=== PATIENT | male | born 1945 | race Caucasian/White ===

== ENCOUNTER 2017-02-04 20:37 | Emergency (ER) | payer MEDICARE, OTHER | END 2017-02-04 23:40 | disposition home or self-care (01) | LOC: ERS 20:37 | DX: J11.1 Influenza due to unidentified influenza virus with other respiratory manifestations (principal) | CPT/HCPCS: 87081; 87430; 99283 ==

== ENCOUNTER 2017-02-07 10:43 | Emergency (ER) | payer MEDICARE, OTHER ==
[2017-02-07 11:43] LABS: ALT (SGPT) 11 U/L (8-55); AST (SGOT) 27 U/L (5-34); Alkaline Phosphatase 131 U/L (40-150); Anion Gap 17 mmol/L (10-20); BUN (Urea Nitrogen) 16 mg/dL (8.4-25.7); Bilirubin, Total 0.8 mg/dL (0.2-1.2); Calc. Creatinine Clearance 0 mL/min (70-130); Carbon Dioxide 23 mmol/L (23-31); Chloride 94 mmol/L (98-107); Estimated GFR-MDRD Greater than 90; Globulin 3.3 g/dL (2.4-3.5); Lipase 41 U/L (8-78); Protein, Total 7.6 g/dL (5.8-8.1)
[2017-02-07 11:58] LABS: #Lymphocytes 1.4 thou/uL (1.20-3.40); #Monocytes 0.8 thou/uL (0.11-0.59); #Neutrophils 4.9 thou/uL (1.40-6.50); %Basophils 0.2 % (0.0-1.0); %Eosinophils 0.6 % (0.0-10.0); %Lymphocytes 19.6 % (21.0-51.0); %Monocytes 10.7 % (0.0-10.0); Hematocrit 49.3 % (42.0-52.0); Mean Platelet Volume 7.7 fL (7.4-10.4); Red Blood Cell (RBC) Count 5.24 mill/uL (4.70-6.10); White Blood Cell (WBC) Count 7.2 thou/uL (4.8-10.8)
[2017-02-07] MEDS ORDERED: Ondansetron ODT 4 MG TAB ONE (12:01)
[2017-02-07 12:54] LABS: Bilirubin Negative (Negative); Blood, Urine Negative (Negative); Glucose, Urine (Dipstick) Negative (Negative); Ketone, Urine 80 mg/dL (Negative); Nitrite Negative (Negative); Protein, Urine (Dipstick) Trace mg/dL (Neg-Trace); Urobilinogen 0.2 mg/dL (0.2-1.0)
--- NOTE | 2017-02-07 13:12 | RAD ---
AP VIEW CHEST; Date: 02/07/17 HISTORY: Cough. FINDINGS: Comparison made to previous exam from 09/18/16. AP view of chest demonstrates ectasia and calcification of the aorta. The lungs are well aerated. No evidence of acute intrathoracic abnormality seen. No evidence of effusions, pneumonia, or pneumothora x seen. IMPRESSION: Unremarkable AP view of chest. POS: [facility]
== END 2017-02-07 13:38 | disposition home or self-care (01) ==
LOC: ERS 10:43
DX: J11.1 Influenza due to unidentified influenza virus with other respiratory manifestations (principal); E87.1 Hypo-osmolality and hyponatremia
CPT/HCPCS: 36415; 71010; 80053; 81003; 83690; 85025; Q0162

== ENCOUNTER 2017-10-15 09:38 | Outpatient (CLI) | payer MEDICARE, OTHER ==
[2017-10-15 10:15] LABS: Estimated GFR-MDRD - POC Greater than 90
== END 2017-10-15 09:39 | disposition home or self-care (01) ==
LOC: BICCT 09:38
PROVIDERS: ATTEND Family Medicine
DX: R59.9 Enlarged lymph nodes, unspecified (principal)
CPT/HCPCS: 74177; 82565

== ENCOUNTER 2017-11-03 10:32 | Outpatient (CLI) | payer MEDICARE, OTHER ==
--- NOTE | 2017-11-03 12:28 | RAD ---
LUMBAR SPINE THREE VIEWS: HISTORY: Slipped fourth vertebra. Please evaluate for severity. COMPARISON: None. FINDINGS: There are five lumbar type vertebral bodies. In the neutral position, there is 2.8 mm of retrolisthe sis of L3 upon L4. Upon flexion there is 3 mm of retrolisthesis of L3 upon L4. Upon extension there is 3.1 mm of retrolisthesis of L3 upon L4. In the neutral position, there is 3.3 mm of anterolisthesis of L4 upon L5. Upon flexion, there 3 mm of anterolisthesis of L4 upon L5. Upon extension, there is 2.5 mm of anterolisthesis of L4 upon L5. Atherosclerosis of the aorta is noted. IMPRESSION: Spondylolisthesis as above. No significant motion upon extension or flexion. POS: [facility]
== END 2017-11-03 10:33 | disposition home or self-care (01) ==
LOC: TBSIIMAG 10:32
PROVIDERS: ATTEND Neurological Surgery
DX: M43.16 Spondylolisthesis, lumbar region (principal)
CPT/HCPCS: 72100

== ENCOUNTER 2018-01-18 05:31 | Day surgery (SDC) | payer MEDICARE, OTHER ==
[2018-01-13 09:57] VITALS: BMI 29.7
[2018-01-18] MEDS ORDERED: CEFAZOLIN 2 GM/50 ML BAG ONE ×2 (06:03→11:24)
[2018-01-18] MEDS ORDERED: Fentanyl 100 MCG/2 ML VIAL ONE ×3 (06:25→09:41)
[2018-01-18] MEDS ORDERED: Bupivacaine HCl 0.5%/Epinephrine 1:200,000/PF 30 ml Vial ONE (06:42)
[2018-01-18] MEDS ORDERED: Thrombin 5000 UNITS/5 ML VIAL ONE (06:42)
[2018-01-18] MEDS ORDERED: Midazolam HCl 2 mg/2 ml Vial ONE (06:54)
[2018-01-18] MEDS ORDERED: ePHEDrine/0.9% NaCl/PF SYRINGE 50 mg/10 ml ONE ×2 (07:45→15:31)
--- NOTE | 2018-01-18 07:51 | HP ---
HISTORY OF PRESENT ILLNESS: Mr. Plummer is a pleasant 72-year-old man, presenting for evaluation of chronic low back pain that he rates a constant 5/10 to 6/10 that can spike with activity. He recently had a worse bout that included left-sided L4 pain. The MRI from [facility] reveals [id number] bilateral neural foraminal narrowing at L4-5 with him to do the flexion and extension films. He has treated this with physical therapy for 6 weeks without really any significant improvement and he is not interested in pursuing injections. We also discussed surgery today. PAST MEDICAL HISTORY: Includes no major medical problems. PAST SURGICAL HISTORY: Prostatectomy, appendectomy, and neck surgery. CURRENT MEDICATIONS: None. ALLERGIES: NO KNOWN DRUG ALLERGIES. PHYSICAL EXAMINATION: GENERAL: The patient is alert and oriented x3. MUSCULOSKELETAL: Gait is mildly antalgic. Lower extremity motor exam is normal. ASSESSMENT: Lumbar back pain with spondylolisthesis. PLAN: Dr. Plummer met with the patient, reviewed imaging, and opted for an L4-5 decompression and fusion. He explained to the patient the risks, benefits, and alternatives to the procedure. The patient expressed understanding and elected to move forward with the surgery as discussed. I do believe that the patient is mentally competent and capable of making medical decisions for himself and we will move forward with surgery as planned. Job ID: [id number]
[2018-01-18] MEDS ORDERED: Tamsulosin HCl 0.4 MG CAP ONE (09:26)
[2018-01-18] MEDS ORDERED: HYDROcodone/Acetaminophen 5/325 mg Tablet ONE (10:40)
--- NOTE | 2018-01-18 13:14 | OP ---
DATE OF PROCEDURE: 01/18/2018 DYE RANGE FEEDER: Anders Hadley PA-C. INDICATION: Pain. DIAGNOSIS: Lumbar spondylolisthesis with back pain and lumbar radiculopathy. PROCEDURES PERFORMED: L4-L5 facetectomies, L4-L5 posterolateral instrumented fusion, placement of allograft, and placement of autograft. ANESTHESIA: General. TECHNIQUE: The patient was brought into the operating room and placed under general anesthesia. He was placed on table in supine position. He was flipped from the supine to a prone position. A linear incision was planned over the L4-L5 segment. After prepping and draping and after a preoperative pause, the incision was created. The underlying platysma muscles were identified and incised. Blunt tissue plane entered. The sternocleidomastoid muscle was used to gain access to the prevertebral space. Self-retaining retractors were placed in the wound for optimal exposure. After confirming appropriate level with C-arm fluoroscopy, facet joint removed at L4-L5 bilaterally. Lateral recess was well decompressed. After identifying the L4-L5, pedicle screws were placed with the aid of C-arm fluoroscopy. A pancho was then placed across the screw head and final tightened. Allograft and autograft material was placed within the lateral confine to the instrumentation construct. The wound was irrigated. Hemostasis was maintained throughout. The wound was then closed in anatomic layers and pressure dressing was applied. There were no known procedural complications. Job ID: [id number]
[2018-01-18] MEDS ORDERED: Dexamethasone 20 MG/5 ML VIAL ONE (15:31)
[2018-01-18] MEDS ORDERED: Ondansetron PF 4 MG/2 ML Vial ONE (15:31)
[2018-01-18] MEDS ORDERED: PROPOFOL 200 MG/20 ML VIAL ONE (15:31)
[2018-01-18] MEDS ORDERED: Lidocaine 1% PF 5 ML VIAL ONE (15:31)
[2018-01-18] MEDS ORDERED: Glycopyrrolate 0.2 MG/ML 5 ML SYRINGE ONE (15:31)
== END 2018-01-18 12:00 | disposition home or self-care (01) ==
LOC: SDC 05:31
PROVIDERS: ATTEND Neurological Surgery
PROC: 0SG00KJ Fusion of Lumbar Vertebral Joint with Nonautologous Tissue Substitute, Posterior Approach, Anterior Column, Open Approach (ICD-10-PCS; principal; 2018-01-18)
DX: M43.16 Spondylolisthesis, lumbar region (principal)
CPT/HCPCS: 76001; 96374; C1713; J0670; J2250; J3010

== ENCOUNTER 2018-03-02 13:48 | Outpatient (CLI) | payer MEDICARE, OTHER ==
--- NOTE | 2018-03-02 14:55 | RAD ---
PA AND LATERAL CHEST: HISTORY: Cough. COMPARISON: Single view chest dated 02/07/2017. FINDINGS: The lungs are clear. The cardiomediastinal silhouette is within normal limits. Mild scoliosis is st able. Multilevel spondylosis of the thoracic spine appears within normal limits. IMPRESSION: No acute cardiopulmonary abnormality. POS: [facility]
== END 2018-03-02 13:49 | disposition home or self-care (01) ==
LOC: RAD-FRANK 13:48
PROVIDERS: ATTEND Nurse Practitioner Family
DX: R05 Cough (principal)
CPT/HCPCS: 71046

== ENCOUNTER 2019-12-21 14:03 | Outpatient (CLI) | payer MEDICARE, OTHER ==
[~2019-12-21 14:03] MED LIST: Iopamidol-370 76% 500 ML 1 ML ONE
--- NOTE | 2019-12-21 15:37 | CT ---
CT PELVIS WITH CONTRAST: 12/21/19 INDICATIONS: Enlarged lymph nodes. COMPARISON: Comparison made to a CT abdomen and pelvis from [facility] dated 10/15/17. That exam described a n enlarged lymph node left upper iliac chain measuring 1.8 to 2.0 cm. FINDINGS: The enlarged lymph node along the upper left iliac chain is again seen and is unchanged in size and a ppearance continuing to measure approximately 1.8 cm AP dimension. No other adenopathy identified. Atherosclerotic calcification in the abdominal aorta without aneurysm . Inferior kidneys are imaged and appear unremarkable. The visualized small and large bowel loops gustabo ear unremarkable. The urinary bladder shows mild bladder wall thickening. There is mild prostatic hyp ertrophy. Osseous structures unremarkable. Postop changes in the lumbar spine with pedicle screws at L4 and L5. IMPRESSION: 1. Enlarged lymph node left upper iliac chain is stable in appearance from the prior CT scan. 2. No evidence of acute process or other interval change. POS: [facility]
== END 2019-12-21 14:04 | disposition home or self-care (01) ==
LOC: BICCT 14:03
PROVIDERS: ATTEND Family Medicine
DX: R59.0 Localized enlarged lymph nodes (principal)
CPT/HCPCS: 72193; Q9967

== ENCOUNTER 2021-01-15 09:07 | Outpatient (CLI) | payer MEDICARE, OTHER ==
[2021-01-15] MEDS ORDERED: Iopamidol-370 76% 500 ML 1 ML ONE (10:11)
== END 2021-01-15 09:08 | disposition home or self-care (01) ==
LOC: BICCT 09:07
PROVIDERS: ATTEND Family Medicine
DX: R59.9 Enlarged lymph nodes, unspecified (principal)
CPT/HCPCS: 72193; Q9967

== ENCOUNTER 2021-12-15 22:17 | Emergency (ER) | payer MEDICARE, OTHER ==
[2021-12-15 23:20] LABS: #Basophils 0.1 thou/uL (0.0-0.2); #Eosinphils 0.6 thou/uL (0.0-0.7); #Lymphocytes 2.8 thou/uL (1.20-3.40); #Monocytes 0.8 thou/uL (0.11-0.59); #Neutrophils 6.4 thou/uL (1.40-6.50); %Basophils 1.1 % (0.0-1.0); %Eosinophils 5.4 % (0.0-10.0); %Monocytes 7.4 % (0.0-10.0); %Neutrophils 60.1 % (42.0-75.0); Hemoglobin 15.4 g/dL (14.0-18.0); Mean Corpuscular HGB CONC 33.7 g/dL (32.0-36.0); Mean Corpuscular Hemoglobin 32.5 pg (27.0-31.0); Mean Corpuscular Volume 96.5 fl (78.0-98.0); Mean Platelet Volume 8.2 fL (7.4-10.4); Platelet Count 174 thou/uL (130-400); RBC Distribution Width 11.6 % (11.5-14.5); Red Blood Cell (RBC) Count 4.74 mill/uL (4.70-6.10); White Blood Cell (WBC) Count 10.6 thou/uL (4.8-10.8)
[2021-12-15 23:55] LABS: ALT (SGPT) 16 U/L (8-55); AST (SGOT) 23 U/L (5-34); Albumin 4.3 g/dL (3.4-4.8); Alkaline Phosphatase 112 U/L (40-110); Anion Gap 13 mmol/L (10-20); BUN (Urea Nitrogen) 10 mg/dL (8.4-25.7); Bilirubin, Total 1.1 mg/dL (0.2-1.2); Calc. Creatinine Clearance 0 mL/min (70-130); Calcium 9.7 mg/dL (7.8-10.44); Carbon Dioxide 28 mmol/L (23-31); Chloride 98 mmol/L (98-107); Estimated GFR 92; Glucose 130 mg/dL (83-110); Potassium 4.1 mmol/L (3.5-5.1); Protein, Total 7.3 g/dL (5.8-8.1); Sodium 135 mmol/L (136-145)
[2021-12-16] MEDS ORDERED: Albuterol Sulfate 2.5 mg/0.5 ml Neb ONE (00:22)
[2021-12-16 00:39] LABS: SARS-CoV-2 NAA Rapid Test Not Detected (NotDetected)
== END 2021-12-16 02:02 | disposition home or self-care (01) ==
LOC: ERS 22:17
DX: R06.02 Shortness of breath (principal); Z20.822 Contact with and (suspected) exposure to COVID-19
CPT/HCPCS: 0240U; 71045; 80053; 83605; 83880; 84484; 85025; 87040; 93005; 94640; 99285; 36415; J7611

== ENCOUNTER 2022-01-24 13:35 | Outpatient (CLI) | payer MEDICARE, OTHER | END 2022-01-24 13:36 | disposition home or self-care (01) | LOC: BICCT 13:35 | PROVIDERS: ATTEND Family Medicine | DX: R59.9 Enlarged lymph nodes, unspecified (principal); K57.30 Diverticulosis of large intestine without perforation or abscess without bleeding; N40.0 Benign prostatic hyperplasia without lower urinary tract symptoms; M47.897 Other spondylosis, lumbosacral region | CPT/HCPCS: 72193; 82565; Q9967 ==

== ENCOUNTER 2023-12-21 13:41 | Outpatient (CLI) | payer MEDICARE, OTHER | END 2023-12-21 13:42 | disposition home or self-care (01) | LOC: BICRAD 13:41 | DX: R05.3 Chronic cough (principal) | CPT/HCPCS: 71046 ==

== ENCOUNTER 2025-01-02 10:06 | Outpatient (CLI) | payer MEDICARE, OTHER | END 2025-01-02 10:07 | disposition home or self-care (01) | LOC: BICRAD 10:06 | PROVIDERS: ATTEND Family Medicine | DX: S29.8XXA Other specified injuries of thorax, initial encounter (principal) ==